=== PATIENT | female | born 1965 | race Caucasian/White ===

== ENCOUNTER 2017-02-22 15:19 | Emergency (ER) | payer OTHER ==
--- NOTE | ~2017-02-22 | CR126 ---
[facility] A Service of [facility] & [facility] RADIOLOGY TEXT RESULTS PATIENT: JF MAHAJAN LOCATION: SED : 63 UNIT #: [id number] AGE: [address]: Jaime Johnson MD SEX: F ORDER DR: [id number] [place] [id number] E MR#: [id number] Acc #: [id number] NAME: JF MAHAJAN : 1965 SEX: F STUDY DATE/TIME: 02/22/2017 15:15 UNIT: SED ROOM: STUDY DESCRIPTION: CR Foot Complete Min 3 View Lt Attending Physician: Jaime Johnson M.D. Ordering Physician: Jaime Johnson M.D. Primary Care Physician: Kathleen Weeks M.D. MEDICAL IMAGING REPORT This report is preliminary unless electronic signature is present. EXAM Left foot 3 views 02/22/2017 HISTORY Left foot pain, swelling and bruising laterally, hit with a cart in her garden yesterday. FINDINGS The tarsal, metatarsal, and phalangeal elements are all anatomically normal in position and alignment. There are no articular defects. No fractures or radiopaque foreign bodies in the soft tissues are apparent. IMPRESSION Normal foot. Dictated by... Lit Will M.D. THIS IS AN ELECTRONICALLY VERIFIED REPORT Lit Will M.D. at 02/24/2017 8:17 AM MICHAEL/erinn TD: 02/22/2017 18:13 JOB #: [id number] MEDICAL IMAGING REPORT Page 1 of 1
--- NOTE | ~2017-02-22 | CR20 ---
[facility] A Service of [facility] & [facility] RADIOLOGY TEXT RESULTS PATIENT: JF MAHAJAN LOCATION: SED : 63 UNIT #: [id number] AGE: [address]: Jaime Johnson MD SEX: F ORDER DR: [id number] [place] [id number] E MR#: [id number] Acc #: [id number] NAME: JF MAHAJAN : 1965 SEX: F STUDY DATE/TIME: 02/22/2017 15:15 UNIT: SED ROOM: STUDY DESCRIPTION: CR Ankle Min 3 Views Lt Attending Physician: Jaime Johnson M.D. Ordering Physician: Jaime Johnson M.D. Primary Care Physician: Kathleen Weeks M.D. MEDICAL IMAGING REPORT This report is preliminary unless electronic signature is present. EXAM Left ankle 3 views 02/22/2017 HISTORY Left ankle pain, bruising and swelling laterally, hit with a cart in her garden yesterday on left foot and ankle. FINDINGS 3 views of the left ankle demonstrate no fracture. There is some degenerative subchondral cyst formation involving the medial malleolus. The bones are otherwise normally mineralized and the ankle mortise is intact. There is no soft tissue abnormality. There is a 5 mm plantar calcaneal spur. IMPRESSION No acute abnormality. Dictated by... Lit Will M.D. THIS IS AN ELECTRONICALLY VERIFIED REPORT Lit Will M.D. at 02/24/2017 8:15 AM MICHAEL/erinn TD: 02/22/2017 18:12 JOB #: [id number] MEDICAL IMAGING REPORT Page 1 of 1
[~2017-02-22 15:19] MED LIST: AMOXICILLIN PO; ATARAX PO; CODEINE PO; DARVOCET-N 1001 TAB PO; NAPROSYN375 MG PO; NAPROSYN500 MG PO; NO MEDICATIONS; NORFLEX100 M1 DOB; PHENERGAN PO; PREDNISONE PO; ULTRAM PO; VOLTAREN50 MG PO; ZOLOFT100 MG PO; ZOLOFT50 MG PO
== END 2017-02-22 16:28 | disposition home or self-care (01) ==
LOC: SED 15:19
DX: S93.422A Sprain of deltoid ligament of left ankle, initial encounter (principal); X50.1XXA Overexertion from prolonged static or awkward postures, initial encounter; Y92.009 Unspecified place in unspecified non-institutional (private) residence as the place of occurrence of the external cause
CPT/HCPCS: 29515; 73610; 73630; 99283

== ENCOUNTER 2017-04-21 09:17 | Emergency (ER) | payer OTHER ==
--- NOTE | ~2017-04-21 | CR63 ---
[facility]. [facility] A Service of [facility] & [facility] RADIOLOGY TEXT RESULTS PATIENT: JF MAHAJAN LOCATION: SED : 63 UNIT #: [id number] AGE: [address]: Elias Harris MD SEX: F ORDER DR: [id number] [address] [address] [id number] E MR#: [id number] Acc #: [id number] NAME: JF MAHAJAN : 1965 SEX: F STUDY DATE/TIME: 04/21/2017 9:34 UNIT: SED ROOM: STUDY DESCRIPTION: CR Chest 2 View Attending Physician: Elias Harris M.D. Ordering Physician: Elias Harris M.D. Primary Care Physician: Kathleen Weeks M.D. MEDICAL IMAGING REPORT This report is preliminary unless electronic signature is present. EXAM Chest, 04/21/2017 HISTORY 51-year-old woman with left lateral chest pain. Pain began last night with fall striking left side on door frame stated. COMPARISON Chest, 10/23/2016 FINDINGS Two-view chest demonstrates normal cardiac size and configuration. Hilar structures and mediastinal contours are preserved. Bilateral lungs are clear. Costophrenic angles are clear. Bony thorax appears negative with no displaced rib fracture visible. IMPRESSION Negative chest. Dictated by... Andrés Webber M.D. THIS IS AN ELECTRONICALLY VERIFIED REPORT Andrés Webber M.D. at 04/21/2017 11:27 AM Kristi TD: 04/21/2017 10:47 JOB #: [id number] MEDICAL IMAGING REPORT Page 1 of 1
== END 2017-04-21 10:38 | disposition home or self-care (01) ==
LOC: SED 09:17
DX: S20.02XA Contusion of left breast, initial encounter (principal); W19.XXXA Unspecified fall, initial encounter
CPT/HCPCS: 71020; 99282; 99283

== ENCOUNTER 2017-08-03 18:10 | Emergency (ER) | payer OTHER ==
[~2017-08-03] VITALS: Ht 170.2 cm; Wt 63.5 kg
--- NOTE | ~2017-08-03 | CR63 ---
[facility] A Service of [facility] & [facility] RADIOLOGY TEXT RESULTS PATIENT: JF MAHAJAN LOCATION: SED : 63 UNIT #: [id number] AGE: [address]: CARMEN PULIDO SEX: F ORDER DR: [id number] [address] [address] [id number] E MR#: [id number] Acc #: [id number] NAME: JF MAHAJAN : 1965 SEX: F STUDY DATE/TIME: 08/03/2017 18:46 UNIT: SED ROOM: STUDY DESCRIPTION: CR Chest 2 View Attending Physician: Alix Anthony Ordering Physician: Physician Non-Staff Primary Care Physician: Kathleen Weeks M.D. MEDICAL IMAGING REPORT This report is preliminary unless electronic signature is present. EXAM Chest PA and lateral 08/03/2017 HISTORY Cough, chills, fever and sore throat for 1 week. Chronic bronchitis. FINDINGS The heart is normal in size. Lungs are hyperinflated but otherwise clear. There are no pleural effusions. IMPRESSION No active pulmonary disease. Dictated by... Lit Will M.D. THIS IS AN ELECTRONICALLY VERIFIED REPORT Lit Will M.D. at 08/04/2017 10:38 AM MICHAEL/jezry TD: 08/04/2017 06:38 JOB #: [id number] MEDICAL IMAGING REPORT Page 1 of 1
[2017-08-03 18:49] LABS: INFLUENZA A NEG (NEG); INFLUENZA B NEG (NEG)
== END 2017-08-03 19:20 | disposition home or self-care (01) ==
LOC: SED 18:10
PROVIDERS: Physician Assistant
DX: J20.9 Acute bronchitis, unspecified (principal); J06.9 Acute upper respiratory infection, unspecified; F41.9 Anxiety disorder, unspecified; F32.9 Major depressive disorder, single episode, unspecified; F17.210 Nicotine dependence, cigarettes, uncomplicated
CPT/HCPCS: 71020; 87651; 87804; 99284